=== PATIENT | male | born 1965 | race Caucasian/White ===

== ENCOUNTER 2025-02-17 16:42 | Emergency (ER) | payer BC ==
[~2025-02-17] VITALS: Ht 182.9 cm; Wt 111.1 kg
[2025-02-17] MEDS ORDERED: ONDANSETRON HCL/PF 4 MG/2 ML VIAL ONE (17:20)
[2025-02-17] MEDS: IV NS 0.9% 1,000 ML BAG IV ONE (17:28)
[2025-02-17] MEDS: ONDANSETRON HCL/PF 4 MG/2 ML VIAL IVP ONE (17:28)
[2025-02-17 17:37] LABS: BASOPHILS % (AUTO) 0.3 % (0.0-2.0); HEMATOCRIT 41 % (39-51); HEMOGLOBIN 14.1 g/dL (13.5-17.5); LYMPHOCYTES % (AUTO) 8.4 % (20.0-44.0); MEAN CORPUSCULAR HEMOGLOBIN 31 PG (26.0-33.0); MEAN CORPUSCULAR HGB CONC 34 g/dl (31.0-36.0); MEAN CORPUSCULAR VOLUME 91 fL (80-96); MONOCYTES # (AUTO) 0.7 K/uL (0.1-1.30); MONOCYTES % (AUTO) 5.9 % (2.0-12.0); NEUTROPHILS # (AUTO) 10.4 K/uL (1.8-8.9); NEUTROPHILS % (AUTO) 85.4 % (43.0-81.0); PLATELET COUNT (AUTO) 214 K/uL (150-450); RED BLOOD CELL COUNT(AUTO) 4.53 MIL/uL (4.5-6.0); RED CELL DISTRIBUTION WIDTH 13.2 % (11.5-15.0); WHITE BLOOD COUNT (AUTO) 12.2 K/uL (4.3-11.0)
[2025-02-17 17:49] LABS: CALCIUM, SERUM 8.8 mg/dL (8.5-10.1); CREATININE 1.2 mg/dL (0.6-1.3); POTASSIUM 3.9 mmol/L (3.5-5.1)
[2025-02-17 17:50] LABS: INR 0.98 (0.91-1.10); PARTIAL THROMBOPLASTIN TIME 30.7 SEC (24.3-34.3); PROTHROMBIN TIME 10.4 SECS (9.2-11.1)
[2025-02-17 17:55] LABS: ALBUMIN 3.5 g/dL (3.4-5.0); BILIRUBIN,DIRECT 0.2 mg/dL (0.0-0.2); BILIRUBIN,TOTAL 0.8 mg/dL (0.2-1.0); TOTAL PROTEIN, SERUM 7.5 g/dL (6.4-8.2)
[2025-02-17 17:58] LABS: LACTIC ACID 1.6 mmol/L (0.4-2.0)
[2025-02-17] MEDS ORDERED: ACETAMINOPHEN 325 MG TABLET ONE (18:06)
[2025-02-17] MEDS: ACETAMINOPHEN 325 MG TABLET PO ONE (18:08)
[2025-02-17] MEDS ORDERED: ONDA4TAB5 PO (18:54)
[2025-02-17] MEDS ORDERED: IBUP-1955 PO (18:54)
[2025-02-17] MEDS ORDERED: AMOX-430 PO (18:54)
[2025-02-17 19:13] VITALS: BP 127/65; TEMP 99.8; O2SAT 98
== END 2025-02-17 19:19 | disposition home or self-care (01) ==
LOC: ER 16:50
DX: R11.2 Nausea with vomiting, unspecified (principal); R19.7 Diarrhea, unspecified; R50.9 Fever, unspecified; D72.829 Elevated white blood cell count, unspecified; Z20.822 Contact with and (suspected) exposure to COVID-19
CPT/HCPCS: 99285; 96374; 96361; 71045; 87426; 93005; 87804 ×2; 84145; 85025; 80048; 87040 ×2; 83605; 80076; 36415; 85730; J2405; J7030 ×3

== ENCOUNTER 2025-02-20 14:25 | Emergency (ER) | payer BC ==
[~2025-02-20] VITALS: Ht 182.9 cm; Wt 112.5 kg
[~2025-02-20 14:25] MED LIST: AMOX-430 PO; IBUP-1955 PO; ONDA4TAB5 PO
[2025-02-20] MEDS: dexaMETHasone SOD PHOSPHATE 10 MG/ML VIAL IV ONE (15:00)
[2025-02-20] MEDS: KETOROLAC TROMETHAMINE 15 MG/ML VIAL IV ONE (15:00)
[2025-02-20] MEDS ORDERED: IPRATROPIUM NEB FS 0.5 MG/2.5 ML AMPUL.NEB ONE (15:02)
[2025-02-20] MEDS ORDERED: ALBUTEROL FS 2.5 MG/0.5 ML VIAL.NEB ONE (15:02)
[2025-02-20 15:03] VITALS: O2SAT 95
[2025-02-20] MEDS: ALBUTEROL FS 2.5 MG/0.5 ML VIAL.NEB NEB ONE (15:03)
[2025-02-20] MEDS: IPRATROPIUM NEB FS 0.5 MG/2.5 ML AMPUL.NEB NEB ONE (15:03)
[2025-02-20 15:17] LABS: BASOPHILS % (AUTO) 0.5 % (0.0-2.0); EOSINOPHILS % (AUTO) 0.2 % (0.0-6.0); HEMATOCRIT 37 % (39-51); HEMOGLOBIN 13.4 g/dL (13.5-17.5); LYMPHOCYTES # (AUTO) 0.6 K/uL (0.8-4.8); LYMPHOCYTES % (AUTO) 7.3 % (20.0-44.0); MEAN CORPUSCULAR HEMOGLOBIN 32 PG (26.0-33.0); MEAN CORPUSCULAR HGB CONC 36 g/dl (31.0-36.0); MEAN CORPUSCULAR VOLUME 89 fL (80-96); MONOCYTES # (AUTO) 0.3 K/uL (0.1-1.30); MONOCYTES % (AUTO) 3.8 % (2.0-12.0); NEUTROPHILS # (AUTO) 6.8 K/uL (1.8-8.9); NEUTROPHILS % (AUTO) 88.2 % (43.0-81.0); PLATELET COUNT (AUTO) 217 K/uL (150-450); RED BLOOD CELL COUNT(AUTO) 4.23 MIL/uL (4.5-6.0); RED CELL DISTRIBUTION WIDTH 13.5 % (11.5-15.0); WHITE BLOOD COUNT (AUTO) 7.7 K/uL (4.3-11.0)
[2025-02-20 15:28] LABS: CALCIUM, SERUM 8.9 mg/dL (8.5-10.1); CREATININE 0.9 mg/dL (0.6-1.3); INR 0.97 (0.91-1.10); PARTIAL THROMBOPLASTIN TIME 32.5 SEC (24.3-34.3); POTASSIUM 3.7 mmol/L (3.5-5.1); PROTHROMBIN TIME 10.3 SECS (9.2-11.1)
[2025-02-20] MEDS: IV NS 0.9% 1,000 ML BAG IV ONE (15:30)
[2025-02-20 15:36] LABS: ALBUMIN 2.6 g/dL (3.4-5.0); BILIRUBIN,DIRECT 0.3 mg/dL (0.0-0.2); BILIRUBIN,TOTAL 0.6 mg/dL (0.2-1.0); TOTAL PROTEIN, SERUM 6.9 g/dL (6.4-8.2)
[2025-02-20 15:43] LABS: LACTIC ACID 1.7 mmol/L (0.4-2.0)
[2025-02-20 16:03] VITALS: O2SAT 97
[2025-02-20] MEDS ORDERED: dexaMETHasone SOD PHOSPHATE 1 ML ONE (16:03)
[2025-02-20] MEDS ORDERED: KETOROLAC TROMETHAMINE 15 MG/ML VIAL ONE (16:03)
[2025-02-20] MEDS ORDERED: LEVO750T46 PO (17:00)
[2025-02-20] MEDS ORDERED: LEVOFLOXACIN 750 MG /D5W 150ML 150 ML IV ONE (17:20)
[2025-02-20] MEDS: LEVOFLOXACIN 750 MG /D5W 150ML PIGGYBACK IV ONE (17:22)
[2025-02-20 18:46] VITALS: BP 128/69; TEMP 100.2; O2SAT 98
== END 2025-02-20 18:50 | disposition home or self-care (01) ==
LOC: ER 14:25
DX: J18.9 Pneumonia, unspecified organism (principal); R50.9 Fever, unspecified; R05.9 Cough, unspecified; R06.02 Shortness of breath; Z87.891 Personal history of nicotine dependence
CPT/HCPCS: 99285; 96365; 71250; 96361; 96375; 93005; 84145; 85025; 80048; 87040 ×2; 83605; 80076; 36415; 85730; 94644; J1885; J1100; J7050; J1956